=== PATIENT | male | born 1955 | race Caucasian/White ===

== ENCOUNTER → 2017-09-14 | Day surgery (SDC) | payer OTHER ==
[~2017-09-14] MED LIST: BABY ASPIRIN81 MG PO; BENAZEPRIL HCL10 MG PO; CARDIZEM60 MG PO; CEFTRIAXONE SOD 1 GM VIAL ONE; FENTANYL CITRATE/PF 100MCG/2 ML INJ ONE; IOPAMIDOL 610MG/1ML 300 MG/ML VIAL IV ONE; JANUMET XR 50-1 EAC1 PO; KOMBIGLYZE XR1 EAC2 PO; LEVAQUIN500 MG PO; LIDOCAINE HCL 2% LOCAL INJ 5 ML SDV VIAL INJ ONE; MIDAZOLAM HCL 2 MG/2 ML VIAL ONE; ONDANSETRON HCL INJ 2 MG/ML VIAL ONE; PROPOFOL IV EMULSION 10 MG/ML 20 ML VIAL ONE
--- NOTE | 2017-09-14 09:34 | Operative Report ---
DATE OF PROCEDURE: September 14, 2017 PREOPERATIVE DIAGNOSES 1. Indwelling ureteral stent. 2. Left ureteral calculous. POSTOPERATIVE DIAGNOSES 1. Indwelling ureteral stent. 2. Left ureteral calculous. PROCEDURES 1. Cystourethroscopy with complicated removal of indwelling ureteral stent (separate procedure for complication of encrustation). 2. Left-sided ureteroscopy with laser lithotripsy (entirely separate procedure to debulk the left large left ureteral stone). 3. Left ureteroscopy with stone extraction (entirely separate procedure for the explicit purposes of STONE ANALYSIS for future prevention of stones and not required for laser lithotripsy). 4. Supervision of fluoroscopy. 5. Interpretation of retrograde ureteropyelography. ANESTHESIA: General. ESTIMATED BLOOD LOSS: Minimal. COMPLICATIONS: None. INDICATIONS FOR PROCEDURE: Mr. Paul is a very pleasant 62-year-old male status post previous stent insertion on the left side. He and I had a long discussion about alternatives, risks and benefits including doing nothing, ureteroscopy, shock wave lithotripsy, percutaneous surgery. He voiced understanding of the options, alternatives, risks and benefits and elected to proceed. PROCEDURE IN DETAIL: After informed consent was obtained, the patient was brought to the operating room and placed in the dorsal lithotomy position, and sterilely prepped and draped for cystoscopy. A 22.5-Arabic cystoscope was inserted per urethra and was normal. It was passed the bladder, and revealed no tumors. There was encrustation seen on the left ureteral stent. Guidewire was inserted. The stent was removed intact. The left ureteroscope was driven to the level of the left ureteral stone. Utilizing 365 micron laser fiber, the 7-mm stone was broken into smaller fragments. These were then basket extracted. The ureteroscope was then driven to the level of the renal pelvis. A brief retrograde pyelogram was performed under fluoroscopy through the scope. It revealed no further filling defects. The entire ureter was cleared. At this time, the bladder was drained. Safety wire was removed. The patient was awakened from anesthesia and transported to the recovery room in excellent condition. SUPERVISION OF FLUOROSCOPY, INTERPRETATION OF RETROGRADE URETERAL PYELOGRAPHY: I was present throughout the entire procedure and I supervised the use of fluoroscopy. There was no radiologist present during this procedure. Attention was turned toward the left, and ureteral orifice was catheterized with a ureteroscope. The ureteroscope was driven over the left renal pelvis and under fluoroscopic. No static images were taken. A retrograde pyelogram was performed revealing no evidence of filling defects. IMPRESSION 1. Intermediate removal of left ureteral stent. 2. Intermediate removal of left ureteral calculous. No other stones seen. Job#: [id number] RE ANGULO
== END | disposition home or self-care (01) ==
LOC: OR 07:09
PROVIDERS: ATTEND Urology
DX: N20.1 Calculus of ureter (principal); N13.30 Unspecified hydronephrosis; Z46.6 Encounter for fitting and adjustment of urinary device; R81 Glycosuria; E11.9 Type 2 diabetes mellitus without complications; I10 Essential (primary) hypertension; Z01.810 Encounter for preprocedural cardiovascular examination; Z79.82 Long term (current) use of aspirin; Z68.31 Body mass index [BMI] 31.0-31.9, adult
CPT/HCPCS: 36415; 52353; 82948; 88300; 93005; C1758; J0696; J2001; J2250; J2405; Q9967; 76000

== ENCOUNTER → 2017-12-06 | Outpatient (CLI) | payer OTHER ==
[~2017-12-06] MED LIST changes: -CEFTRIAXONE SOD 1 GM VIAL ONE; -FENTANYL CITRATE/PF 100MCG/2 ML INJ ONE; -IOPAMIDOL 610MG/1ML 300 MG/ML VIAL IV ONE; -LIDOCAINE HCL 2% LOCAL INJ 5 ML SDV VIAL INJ ONE; -MIDAZOLAM HCL 2 MG/2 ML VIAL ONE; -ONDANSETRON HCL INJ 2 MG/ML VIAL ONE; -PROPOFOL IV EMULSION 10 MG/ML 20 ML VIAL ONE
--- NOTE | 2017-12-06 15:39 | Diagnostic Imaging Report ---
PROCEDURE:X-RAY ABDOMEN - KUB COMPARISON:Patients [facility] [place], [place], OUTSIDE CT IMAGES, 09/03/2017, 11:17. INDICATIONS:HISTORY OF KIDNEY STONES FINDINGS: Nonobstructive bowel gas pattern. 4 mm radiopaque densities projecting in the mid and distal inferior aspects of the left renal shadow, likely corresponding to previously. Visualized nonobstructing calculi. No radiopaque densities project over the right renal shadow, expected course of ureters or bladder. Stable pelvic phleboliths. No acute bony abnormalities. CONCLUSION: At least two 4 mm nonobstructing calculi in the left kidney. No radiopaque densities project over the expected course of the ureters or bladder. Philip Lagunas M.D. Dictated by: Philip Lagunas M.D. on 12/06/2017 at 15:39 Electronically approved by: Philip Lagunas M.D. on 12/06/2017 at 15:39
== END ==
LOC: RAD 13:20
PROVIDERS: ATTEND Urology
DX: N20.0 Calculus of kidney (principal)
CPT/HCPCS: 74018

== ENCOUNTER 2018-03-26 09:00 | Outpatient (RCR) | payer OTHER | END 2018-03-30 | LOC: PT 09:00 | PROVIDERS: ATTEND Neurological Surgery | DX: M50.01 Cervical disc disorder with myelopathy, high cervical region (principal); M54.2 Cervicalgia; M62.81 Muscle weakness (generalized) ==

== ENCOUNTER → 2018-04-08 | Outpatient (CLI) | payer OTHER ==
--- NOTE | 2018-04-08 11:20 | Diagnostic Imaging Report ---
PROCEDURE:X-RAY ABDOMEN - KUB COMPARISON:KUB dated 12/06/17 INDICATIONS:CALCULUS OF KIDNEY FINDINGS: There is a non-obstructed bowel-gas pattern. There are unchanged 3 mm calculi overlying the left renal mid and inferior pole shadow. Questionable punctate right inferior pole calcification. There are no acute osseous abnormalities. The lung bases are clear. Unchanged left pelvic phleboliths. CONCLUSION: Unchanged subcentimeter left renal calculi. Questionable punctate right inferior pole renal calculus. Dictated by: Stanford Roman M.D. on 04/08/2018 at 11:24 Electronically approved by: Stanford Roman M.D. on 04/08/2018 at 11:24
== END ==
LOC: RAD 08:28
PROVIDERS: ATTEND Urology
DX: N20.0 Calculus of kidney (principal)
CPT/HCPCS: 74018

== ENCOUNTER 2018-04-15 07:00 | Outpatient (RCR) | payer OTHER | END 2018-04-30 | LOC: PT 07:00 | PROVIDERS: ATTEND Neurological Surgery | DX: M50.01 Cervical disc disorder with myelopathy, high cervical region (principal); M53.82 Other specified dorsopathies, cervical region; M62.81 Muscle weakness (generalized) ==

== ENCOUNTER 2018-07-04 07:32 | Emergency (ER) | payer OTHER ==
[~2018-07-04] VITALS: Ht 175.3 cm; Wt 90.7 kg
[2018-07-04] MEDS ORDERED: KETOROLAC TROMETHAMINE 30 MG/ML VIAL IV STA (07:43)
[2018-07-04] MEDS ORDERED: SODIUM CHLORIDE 0.9% 1000ML 1,000 ML IV SCH (07:45)
[2018-07-04 08:00] LABS: BASOPHILS % 0.3 % (0.0-1.0); EOSINOPHILS # (AUTO) 0.2 (0.0-0.4); EOSINOPHILS % 1.7 % (0.0-6.0); HEMATOCRIT 43.4 % (38.2-49.6); HEMOGLOBIN 14.9 g/dL (14.0-18.0); LYMPHOCYTES # (AUTO) 1.8 (1.0-3.2); LYMPHOCYTES % 19.6 % (18.0-39.1); MEAN CORPUSCULAR HEMOGLOBIN 30.9 pg (28-32); MEAN CORPUSCULAR HGB CONC 34.3 g/dL (31-35); MONOCYTES # (AUTO) 0.7 (0.2-0.8); MONOCYTES % 7.6 % (4.4-11.3); NEUTROPHILS # (AUTO) 6.5 (2.1-6.9); NEUTROPHILS % 70.3 % (38.7-80.0); PLATELET COUNT 220 x10e3/uL (140-360); RED BLOOD COUNT 4.82 x10e6/uL (4.3-5.7); RED CELL DISTRIBUTION WIDTH 12.5 % (11.7-14.4)
--- NOTE | 2018-07-04 08:19 | Diagnostic Imaging Report ---
PROCEDURE: CT ABDOMEN AND PELVIS WITHOUT CONTRAST TECHNIQUE: The abdomen and pelvis were scanned utilizing a multidetector helical scanner from the diaphragm to the lesser trochanter after the oral administration of water. No intravenous contrast was administered per renal stone protocol. Coronal and sagittal multiplanar reformations were obtained. COMPARISON: None. INDICATIONS: LEFT FLANK PAIN FINDINGS: ABSENCE OF INTRAVENOUS CONTRAST DECREASES SENSITIVITY FOR DETECTION OF FOCAL LESIONS AND VASCULAR PATHOLOGY. LOWER THORAX: Subsegmental atelectasis in the left lower lobe and inferior lingula. No pleural or pericardial effusion. HEPATOBILIARY: Hepatic parenchyma is diffusely hypoattenuating compatible with steatosis. No focal hepatic lesion. No intrahepatic biliary ductal dilatation. The gallbladder is unremarkable. SPLEEN: No splenomegaly or focal splenic lesion. PANCREAS: No focal masses or ductal dilatation. ADRENALS: No adrenal nodules. KIDNEYS/URETERS: 7 mm calculus in the left lower pole collecting system. Tandem 3 mm calculi in the distal left ureter near the ureterovesical junction resulting in mild hydroureteronephrosis. No right sided hydronephrosis. 4 mm nonobstructing right lower pole renal calculus. No right ureteral calculus. No focal renal mass lesion. PELVIC ORGANS/BLADDER: The urinary bladder is incompletely distended but otherwise unremarkable. Coarse prostatic calcifications. Multiple pelvic phleboliths. PERITONEUM / RETROPERITONEUM: No ascites. No pneumoperitoneum. LYMPH NODES: No pelvic sidewall, retroperitoneal, or mesenteric lymphadenopathy. VESSELS: Limited evaluation without intravenous contrast. The abdominal aorta is non-aneurysmal. GI TRACT: The large bowel shows no distention or wall thickening. The appendix is normal. Small duodenal diverticulum. The small bowel shows no evidence of distention or wall thickening. BONES AND SOFT TISSUES: Small bilateral fat containing inguinal hernias. Otherwise no focal soft tissue abnormalities. No osseous destructive lesions. Degenerative disc changes and facet arthropathy at the lumbosacral junction. IMPRESSION: Tandem 3 mm distal left ureteral calculi result in mild hydroureteronephrosis. Additional nonobstructing bilateral renal calculi as above. Hepatic steatosis. Dictated by: Samson Vides M.D. on 07/04/2018 at 8:26 Electronically approved by: Samson Vides M.D. on 07/04/2018 at 8:26
[2018-07-04 08:20] LABS: ALBUMIN 4.5 g/dL (3.5-5.0); ALBUMIN/GLOBULIN RATIO 1.6 (0.8-2.0); ANION GAP 15.5 mmol/L (8-16); CALCIUM 10.1 mg/dL (8.4-10.2); CREATININE, SERUM 1.48 mg/dL (0.72-1.25); POTASSIUM 4.5 mmol/L (3.5-5.1)
[2018-07-04 08:29] LABS: CLARITY,URINE TURBID (CLEAR); COLOR,URINE RED (YELLOW); KETONES,URINE TRACE (NEGATIVE); LEUKOCYTE ESTERASE ,URINE TRACE (NEGATIVE); NITRITE,URINE POSITIVE (NEGATIVE); PROTEIN,URINE DIPSTICK 3+ (NEGATIVE); URINE UROBILINOGEN 1 mg/dL (0.2 - 1)
[2018-07-04 08:30] LABS: BILIRUBIN,URINE 1+ (NEGATIVE)
[2018-07-04 08:31] LABS: BACTERIA,URINE FEW /HPF; EPITHELIAL CELLS,URINE RARE /LPF; RBC,URINE >50 /HPF (0-5)
[2018-07-04 08:32] LABS: HYALINE CASTS 0-1 (0-1)
[2018-07-04] MEDS ORDERED: CEFTRIAXONE SOD 1 GM VIAL IV SCH (10:45)
[2018-07-04] MEDS ORDERED: KEFLEX500 MG PO (10:50)
[2018-07-04 12:00] VITALS: BP 119/84
== END 2018-07-04 11:45 | disposition home or self-care (01) ==
LOC: ER 07:32
DX: R30.0 Dysuria (principal); R31.9 Hematuria, unspecified; M54.5 Low back pain; N20.0 Calculus of kidney
CPT/HCPCS: 36415; 74176; 80053; 81001; 85025; 93005; 99284; J0696; J1885; J7030

== ENCOUNTER → 2018-07-19 | Day surgery (SDC) | payer OTHER ==
--- NOTE | 2018-07-17 07:12 | Diagnostic Imaging Report ---
PROCEDURE:X-RAY ABDOMEN - KUB COMPARISON:04/08/2018. CT abdomen and pelvis 07/04/2018 INDICATIONS:PRE-OP FINDINGS: 7 mm left lower pole calculus is questionably visualized, though overlying bowel contents limit evaluation of the kidneys. 3 mm distal left ureteral calculi are not identified by plain radiography. Bowel gas pattern is nonobstructive. Regional skeletal structures are intact. CONCLUSION: Questionable visualization of 7 mm left lower pole renal calculus. 3 mm distal left renal calculi described on the comparison CT are not identified by plain radiography. Dictated by: Samson Vides M.D. on 07/17/2018 at 7:21 Electronically approved by: Samson Vides M.D. on 07/17/2018 at 7:21
[~2018-07-19] MED LIST changes: +CEFTRIAXONE SOD 1 GM VIAL ONE; +DEXAMETHASONE SOD PHOS INJ 4 MG/ML VIAL ONE; +FENTANYL CITRATE/PF 100MCG/2 ML INJ ONE; +KEFLEX500 MG PO; +LIDOCAINE HCL 2% LOCAL INJ 5 ML SDV VIAL INJ ONE; +MIDAZOLAM HCL 2 MG/2 ML VIAL ONE; +ONDANSETRON HCL INJ 2 MG/ML VIAL ONE; +PROPOFOL IV EMULSION 10 MG/ML 20 ML VIAL ONE; +SEVOFLURANE INHAL SOLN 250 ML PEN BTL ONE
[2018-07-19 09:40] VITALS: BP 116/65
--- NOTE | 2018-07-20 09:51 | Operative Report ---
DATE OF PROCEDURE: July 19, 2018 PREOPERATIVE DIAGNOSIS: Left kidney stone. POSTOPERATIVE DIAGNOSIS: Left kidney stone. PROCEDURES 1. Staged shock wave lithotripsy, left side. 2. Supervision fluoroscopy. ANESTHESIA: General. ESTIMATED BLOOD LOSS: Minimal. COMPLICATIONS: None. INDICATIONS: Mr. Paul is a 62-year-old male with a symptomatic left-sided kidney stone. He and I had a long discussion about alternatives, risks and benefits, including doing nothing, shock wave lithotripsy, ureteroscopy, percutaneous surgery and open surgery. He voiced understanding of the options, alternatives, risks, and benefits and elected to proceed. PROCEDURE IN DETAIL: After informed consent was obtained, the patient was taken to the operating room and placed supine and underwent general anesthesia by the anesthesia service. Stone was localized in the X, Y, and Z planes. A total of 3000 shocks at a maximum power setting of 6 were delivered to the stone. The patient tolerated the procedure well and was transported to the recovery room in excellent condition. There were no untoward effects noted. SUPERVISION OF FLUOROSCOPY: I was present throughout the entire procedure and I supervised the use of fluoroscopy as no radiologist was present. Details per treatment report. Job#: [id number] MADELYN
== END | disposition home or self-care (01) ==
LOC: OR 07-17 05:03
PROVIDERS: ATTEND Urology
DX: N20.0 Calculus of kidney (principal); E11.9 Type 2 diabetes mellitus without complications; Z79.84 Long term (current) use of oral hypoglycemic drugs
CPT/HCPCS: 36415 ×2; 50590; 74018; 82948 ×2; J0696 ×2; J1100; J2001; J2250; J2405

== ENCOUNTER → 2021-06-29 | Outpatient (CLI) | payer MEDICARE ==
[~2021-06-29] MED LIST changes: -CEFTRIAXONE SOD 1 GM VIAL ONE; -DEXAMETHASONE SOD PHOS INJ 4 MG/ML VIAL ONE; -FENTANYL CITRATE/PF 100MCG/2 ML INJ ONE; -LIDOCAINE HCL 2% LOCAL INJ 5 ML SDV VIAL INJ ONE; -MIDAZOLAM HCL 2 MG/2 ML VIAL ONE; -ONDANSETRON HCL INJ 2 MG/ML VIAL ONE; -PROPOFOL IV EMULSION 10 MG/ML 20 ML VIAL ONE; -SEVOFLURANE INHAL SOLN 250 ML PEN BTL ONE
== END ==
LOC: RAD 08:04
PROVIDERS: ATTEND Urology
DX: N20.0 Calculus of kidney (principal)
CPT/HCPCS: 74018

== ENCOUNTER → 2021-07-14 | Outpatient (CLI) | payer MEDICARE | LOC: RAD 11:02 | PROVIDERS: ATTEND Urology | DX: N20.0 Calculus of kidney (principal) | CPT/HCPCS: 74018 ==